=== PATIENT | female | born 1930 | race Caucasian/White ===

== ENCOUNTER 2018-07-27 23:26 | Observation (INO) | payer MEDICARE ==
[2018-07-27] MEDS ORDERED: Ketorolac Tromethamine 30 MG/ML VIAL ONE (23:52)
[2018-07-28 01:10] LABS: CKMB 1.3 ng/mL (0-6.6)
[2018-07-28] MEDS ORDERED: Acetaminophen 500 MG TAB ONE (03:50)
[2018-07-28 07:28] VITALS: BMI 23.2
--- NOTE | 2018-07-28 08:34 | ULT ---
PRELIMINARY REPORT/[facility]/EMERGENTY AFTER-HOURS PROCEDURE US Left Duplex Lower Extremity Veins, Limited EXAM DATE/TIME: 07/28/2018 12:26 AM CLINICAL HISTORY: 88 years old, female; Pain and signs and symptoms; Edema, localized; Lower extremity, left; Leg, lowe r and foot; Patient HX: Lle pain/edema x 1 week TECHNIQUE: Real-time Duplex ultrasound of the Left Lower Extremity with 2-D rincon scale, color Doppler flow and s pectral waveform analysis. Limited exam focused on the left lower extremity veins. COMPARISON: No relevant prior studies available. FINDINGS: Left deep veins: The common femoral, femoral, popliteal and visualized calf veins are patent without thrombus. Normal compressibility, augmentation response and Doppler waveforms. Left superficial veins: Saphenofemoral junction is patent without thrombus. Soft tissues: Calf edema. IMPRESSION: No evidence of deep vein thrombosis. Thank you for allowing us to participate in the care of your patient. Dictated and Authenticated by: Jose Sexton MD 07/28/2018 12:49 AM Central Time ([place] & [place]) FINAL REPORT EMERGENCY AFTER HOURS LEFT LOWER EXTREMITY DOPPLER VENOUS ULTRASOUND: DATE: 07/28/18 FINDINGS/IMPRESSION: I agree with the preliminary report provided by Leila. There is no evidence of deep venous thrombosis within the left lower extremity. POS: RIGOBERTO
[2018-07-28] MEDS ORDERED: Ondansetron ODT 4 MG TAB PO PRN ×2 (08:49→11:39)
[2018-07-28] MEDS ORDERED: Ondansetron PF 4 MG/2 ML Vial IVP PRN (08:49)
[2018-07-28] MEDS ORDERED: Acetaminophen 325 MG TAB PO PRN ×2 (08:50→11:39)
[2018-07-28] MEDS ORDERED: Prevnar 13-Val Conj/PF 0.5 ML SYRINGE IM ONE (09:00)
[2018-07-28 12:11] VITALS: BP 140/74; TEMP 99.7
--- NOTE | 2018-07-28 12:27 | HP ---
PRIMARY CARE PROVIDER: Elvira Desir, [place], [facility]- HISTORY OF PRESENT ILLNESS: The patient referred to the [facility] [place] [facility] by [facility] as a direct admit. The patient went to the emergency room because her legs were swelling, has a history of deep vein thrombosis, on Eliquis. Her legs are always painful. She said that emergency room suspected she had, had a stroke because she had some difficulty with words. She noted no focal weakness. No slurred speech. No headache. No dizziness. She is a poor historian. PAST MEDICAL HISTORY: She had a pacemaker put in 10 years ago, removed several months ago. She states a loop recorder was placed yesterday. She has a history of macular degeneration, arthritis, compression fractures of the spine, multiple DVTs with factor V abnormality. She states she had rheumatic fever as a child. 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 Has a history of anxiety and depression. Per her chart, she denies. ALLERGIES: TO SULFA. CURRENT MEDICATIONS: She does not remember. She states her daughter takes care of her, however, the chart documents; 1. Celexa 40 mg a day. 2. Cymbalta 60 mg a day. 3. Eliquis 2.5 mg twice a day. 4. Gabapentin 300 mg 3 times a day. 5. Levothyroxine 88 mcg a day. 6. Protonix 40 mg a day. 7. Fentanyl patch 50 mcg an hour. 8. [place] 7.5/325. 9. Nitrofurantoin 50 mg once a day. 10. Vitamins. FAMILY HISTORY: She is unable to give me any family history of note. SOCIAL HISTORY: She states she is , then she stated my had been 20 years ago. No tobacco. No alcohol. She has 2 daughters, who are next of kin for decision makers, Sushma Larios, is one of them. The patient did not understand my conversations about resuscitation status. She will be full code until I am able to talk with family. REVIEW OF SYSTEMS: GENERAL: No fever, chills, dizziness, or fainting. EYES: Very poor vision from macular degeneration. EAR, NOSE, AND THROAT: No ear pain or drainage. No nasal bleeding. No trouble swallowing. CARDIAC: No chest pain, orthopnea, or paroxysmal nocturnal dyspnea. RESPIRATIONS: No cough, wheezing, or asthma. GASTROINTESTINAL: She has a long history of alternating diarrhea or constipation. She takes MiraLAX for constipation. No abdominal pain. No nausea or vomiting. GENITOURINARY: She has frequent urination. No dysuria. MUSCULOSKELETAL: Swelling in her legs. Chronic pain in her legs. Pain review of systems, she states she has chronic headaches, chronic throat pain, and chronic leg pain. NEUROLOGIC: No history of stroke, seizures, or focal weakness. She states she has no psychiatric complaints, but is on two medications. SKIN: No bruising, bleeding, or rash. HEME/LYMPH: No tender or swollen lymph nodes in the axilla, inguinal, or cervical area. PHYSICAL EXAMINATION: GENERAL: She is alert, cooperative, and oriented x3. She does have occasional searching for words, but does not appear to be any receptive or expressive aphasia actually. VITAL SIGNS: Blood pressure 137/63, pulse 69, respirations 18, and temperature 97.8. HEAD, EYES, EARS, NOSE, AND THROAT: Revealed the left pupil was slightly larger than the right, but both showed signs of implants, both reactive. Extraocular movements are intact. Sclerae are white. Tympanic membranes clear. Nose clear. Oral mucous membranes are wet. Dental hygiene is good. NECK: Supple without jugular venous distention, adenopathy, or thyromegaly. CHEST: Clear to auscultation and percussion. HEART: Had a regular rate and rhythm. She had a 4/6 holosystolic murmur across the precordium. No lift. ABDOMEN: Soft. Bowel sounds are normal. No hepatosplenomegaly. No mass. No rebound. No bruits. EXTREMITIES: Reveal no cyanosis, clubbing, or edema. PULSES: Carotid, radial, and femoral pulses are intact. Pedal pulses mildly diminished. SKIN: Warm and dry. She has a bruise on her anterior chest. She has a healing wound on her left upper chest consistent with pacemaker removal. LYMPH SURVEY: Cervical, axillary, and inguinal areas are free of palpable or tender lymph nodes. NEUROLOGICAL: She has a left footdrop. Cranial nerves II through XII are intact. Deep tendon reflexes and strength are normal in the upper extremities. DIAGNOSTIC STUDIES: EKG; regular sinus rhythm with occasional PACs and nonspecific T-wave abnormality, reviewed by me. Brain CT reviewed by me, no acute intracranial abnormality. Chest x-ray reviewed by me; no cardiomegaly, CHF, or infiltrate. There is a nonspecific density in the right upper chest. They warrants further investigation. Laboratory done in [place]. White count 6.4, hemoglobin 10.2, and platelet count 222,000. INR 1.1. Creatinine 1.01, BUN 17, sodium 144, and potassium 3.0. Troponin 0.077, 0.060. TSH 1.96. Urinalysis; 7 to 10 white cells, trace esterase, and negative nitrite. ADMITTING DIAGNOSES: 1. Word searching, apparently new diagnosis of altered mental status. 2. Chest mass. 3. Mitral insufficiency. 4. Chronic pain syndrome. 5. History of deep vein thromboses with chronic anticoagulation. 6. Chronic renal failure, 3. PLAN: 1. MRI, if possible. 2. CT of chest with contrast. 3. Echocardiogram. 4. Aspirin. DISCUSSION: The patient's word searching and the current medication she is on for an 88-year-old woman with fentanyl, hydrocodone, gabapentin, and duloxetine, and citalopram. I suspect her word searching and problems are related to her medications. Job ID: [id number]
[2018-07-28] MEDS ORDERED: Lorazepam 2 MG/ML VIAL SLOW IVP SCH (13:15)
--- NOTE | 2018-07-28 15:04 | DIS ---
DATE OF ADMISSION: 07/28/2018 DATE OF DISCHARGE: 07/28/2018 PRIMARY CARE PROVIDER: Elvira Desir, PAOLO, [employer]-. DISCHARGE DISPOSITION: Home. FINAL DIAGNOSES: 1. Altered mental status with word searching. 2. Chronic pain syndrome on multiple medicines. 3. Chronic anticoagulation for deep vein thrombosis. 4. Mitral insufficiency. 5. Chest mass. 6. Chronic renal failure, stage 3. DISCHARGE MEDICINES: Same as home medicines. 1. MiraLAX 17 g in water daily p.r.n. 2. Fentanyl 50 mcg/hour patch, change every three days. 3. Protonix 20 mg a day. 4. Nitrofurantoin 50 mg a day. 5. Levothyroxine 88 mcg a day. 6. Hydrocodone 7.5/325 one every 6 hours as needed. 7. Duloxetine 60 mg a day. 8. Citalopram 40 mg a day. 9. Eliquis 2.5 mg twice a day. ALLERGIES: ALLERGIC TO SULFA. DIET: As tolerated. PENDING AT TIME OF DISCHARGE: Nothing. CODE STATUS: Full. HOSPITAL COURSE: The patient was referred from [facility] to [facility] because the patient's preferred site of referral and all her physicians were at [facility]. She states she went to the ER for swelling in her legs. The venous ultrasound was negative for thrombosis. She reported to have some word searching. CAT scan was unremarkable. Chest x-ray did show unexplained opacity in the right upper chest near the midline. Physical exam was unremarkable except for her footdrop. Laboratory was unremarkable. MRI was ordered. Echocardiogram was ordered for a 4/[address] scan with contrast was ordered for the chest opacity. The patient's family showed up, stated they want no medication changes, wanted to go to [facility]. I told them I could not transfer her to [facility]. They requested that she be discharged to be followed up at [facility], that the only reason she was sent to [place] as the emergency room refused to let them go home with her. She is being discharged in a long discussion with family, it is my opinion that the speech problem is related to the five psychotropic drugs she is on in high dose. They related to me that she has a primary care doctor or automotive artist and a pain doctor at [facility]. Therefore, the MRI has not been done. The echocardiogram will be left to the [facility] automotive artist (I am sure it has been evaluated before) and a CAT scan of the chest can easily be done there also. They stated they will see Emma in 1 to 2 days. She is being discharged to them. No procedures were done. No consults were obtained. Job ID: [id number]
[2018-07-28] MEDS ORDERED: Apixaban 2.5 MG TAB PO SCH (21:00)
[2018-07-29] MEDS ORDERED: Levothyroxine Sodium 88 MCG TAB PO SCH (06:00)
[2018-07-29] MEDS ORDERED: Enoxaparin Sodium 40 MG/0.4 ML SYRINGE SC SCH (09:00)
[2018-07-29] MEDS ORDERED: Aspirin 81 mg Enteric Coated Tablet PO SCH (09:00)
--- NOTE | 2018-07-30 23:30 | EKG ---
Test Reason : AMS Blood Pressure : / mmHG Vent. Rate : 063 BPM Atrial Rate : 063 BPM P-R Int : 202 ms QRS Dur : 084 ms QT Int : 420 ms P-R-T Axes : 040 007 000 degrees QTc Int : 429 ms Normal sinus rhythm Nonspecific T wave abnormality Abnormal ECG Confirmed by KALI BOWEN DO ([id number]), sports editor MAIN ANTON ([id number]) on 07/30/2018 11:29:31 PM Referred By: Confirmed By:KALI BOWEN DO
== END 2018-07-28 15:05 | disposition home or self-care (01) ==
LOC: ERS 23:26 → ERHOLD 07-28 04:23 → 2SE 07-28 06:50
PROVIDERS: ADMIT Internal Medicine; ATTEND Internal Medicine
DX: R41.82 Altered mental status, unspecified (principal); G89.4 Chronic pain syndrome; I34.0 Nonrheumatic mitral (valve) insufficiency; R22.2 Localized swelling, mass and lump, trunk; N18.3 Chronic kidney disease, stage 3 (moderate); M79.89 Other specified soft tissue disorders; M19.90 Unspecified osteoarthritis, unspecified site; D68.2 Hereditary deficiency of other clotting factors; F41.9 Anxiety disorder, unspecified; F32.9 Major depressive disorder, single episode, unspecified; Z86.718 Personal history of other venous thrombosis and embolism; Z95.818 Presence of other cardiac implants and grafts; Z79.01 Long term (current) use of anticoagulants; Z79.2 Long term (current) use of antibiotics; Z79.899 Other long term (current) drug therapy; Z88.2 Allergy status to sulfonamides
CPT/HCPCS: 82553; 84484; 90662; 90670; 93005; 93971; 97139; 99285; G0008; G0009; G0378 ×2; 36415; 90471; J1885